=== PATIENT | male | born 1990 | race Hispanic/Latino ===

== ENCOUNTER 2025-02-06 05:46 | Emergency (ER) | payer SELFPAY ==
[2025-02-06 05:53] VITALS: BP 112/73; BMI 20.2
[2025-02-06 05:58] VITALS: BP 112/73
[2025-02-06 06:00] VITALS: BP 113/74
[2025-02-06 06:29] LABS: Hematocrit 34.9 % (39.0-52.0); Hemoglobin 11.9 g/dL (13.0-18.0); Mean Corp Hgb Conc. 34.1 g/dL (33.0-37.0); Mean Corpuscular Volume 86.0 fL (80.0-94.0); Nucleated Red Blood Cells % 0 % (-); Platelet Count 309 10^3/uL (130-400); Red Cell Dist. Width 12.9 % (11.5-14.5)
--- NOTE | 2025-02-06 06:40 | ED.GENMED ---
History of Present Illness
General
Chief Complaint: Fainting Sensation
Source: patient
Exam Limitations: none
Time Seen by Provider: 02/06/25 06:34
History of Present Illness
History of Present Illness:
See MDM
Past History
Past History
ED Past Medical History: None
ED Past Surgical History: None
Social History
Drug: Marijuana
Phy Exam
Physical Exam
Physical Exam:
See MDM
Course
Orders/Labs/Results
Orders:
Orders
02/06/25 05:53
EKG [Electrocardiogram (*1)] Urgent
Reason for Study: Syncope
EKG- Treatment ONCE
02/06/25 06:13
CMP [Comprehensive Metabolic Panel] Urgent
Complete Blood Count/With Diff Urgent
02/06/25 07:21
Fentanyl, Urine Urgent
Urine Drug Abuse Screen Urgent
Date Specimen was Collected: 02/06/25
Time Specimen was Collected: 07:18
Abnormal Lab Results
02/06/25 02/06/25
06:13 07:21
RBC 4.06 L 10^6/uL
(4.70-6.10)
Hgb 11.9 L g/dL
(13.0-18.0)
Hct 34.9 L %
(39.0-52.0)
MPV 10.9 H fL
(7.4-10.4)
Absolute Monos (auto) 0.9 H 10^3/uL
(0.1-0.6)
Lymphocytes % 20.3 L %
(20.5-51.1)
Monocytes % 10.3 H %
(1.7-9.3)
BUN 35 H mg/dl
(9-20)
Glucose 100 H mg/dl
(70-99)
Urine Cocaine Screen Positive H
(Negative)
U Marijuana (THC) Screen Positive H
(Negative)
02/06/25 06:13
02/06/25 06:13
Vital Signs
Initial and Last Documented VS:
Initial Vital Signs
Temp Pulse Resp BP Pulse Ox
98.4 F 66 14 112/73 98
02/06/25 05:53 02/06/25 05:53 02/06/25 05:53 02/06/25 05:53 02/06/25 05:53
Last Documented Vital Signs
Temp Pulse Resp BP Pulse Ox
98.4 F 66 14 112/73 98
02/06/25 05:53 02/06/25 05:53 02/06/25 05:53 02/06/25 05:53 02/06/25 06:44
MDM/Problems Addressed
Differential Diagnosis Includes:
Note:
CHIEF COMPLAINT(S)
Increased use of marijuana causing episodes of entering and exiting consciousness.
HISTORY OF PRESENT ILLNESS
The patient is a 34-year-old male who presented with episodes of losing and regaining consciousness. The patient stated, 'I just keep going in and out,' and expressed a need for evaluation due to these symptoms. He recently arrived at the hospital
via ambulance. The patient mentioned frequent use of marijuana, which he purchases off the street, indicating a concern for its effects. He was told at an outside hospital that he had fentanyl in his system but denies purposeful fentanyl use. He
denied any immediate chest pain or shortness of breath at presentation. The patient inquired about rehabilitation options, stating his desire to 'get myself together' and implying his willingness to seek help for substance use issues. During the
examination, he pointed out a lump in the neck region, which upon inspection, was deemed consistent with the hyoid bone without signs of acute abscess, mass, or lymphadenopathy.
SOCIAL DETERMINANTS AFFECTING HEALTH
The patient has expressed a reliance on marijuana, purchased from the street, which has led to health concerns, including episodes of altered consciousness. He has shown a willingness to consider rehabilitation as a measure to address his substance
use.
REVIEW OF SYSTEMS
- Neurological: Episodes of loss of consciousness.
- Oral scrutiny: Lump in the neck region consistent with the hyaloid bone, non-tender, not indicative of a mass or abscess.
PHYSICAL EXAM
General: Alert, no acute distress.. Lying in bed comfortably
Skin: Warm, dry.
Head: Normocephalic, atraumatic.
Neck: Supple, trachea midline, palpable area consistent with the hyoid bone.
Eyes, Ears, Nose, Mouth and Throat: Oral mucosa moist.
Cardiovascular: Normal peripheral perfusion, No edema. Regular rate and rhythm
Respiratory: Respirations are non-labored.
Gastrointestinal: Abdomen nondistended.
Musculoskeletal: Normal range of motion, normal strength.
Neurological: no focal neurological deficit observed.
Psychiatric: Cooperative, appropriate mood & affect.
PLAN
- Engage drug and alcohol counselors to discuss rehabilitation options for substance use.
- Conduct an Electrocardiogram (EKG) to evaluate cardiac function.
DIFFERENTIAL DIAGNOSIS
The Differential Diagnosis includes, in no particular order and is not limited to:
1. Substance-induced altered mental status
2. Syncope secondary to substance use
3. Cardiac arrhythmia
4. Anxiety-related depersonalization
5. Neurological disorder
6. Sleep disorder
7. Psychoactive substance withdrawal
8. Neuromuscular disorder
9. Transient ischemic attack
10. Organic brain syndrome due to drug use
EKG
My independent EKG interpretation is:
- Rhythm: Normal sinus rhythm
- Heart Rate: 87 beats per minute
- [place]: Normal
- ST Segment: No ST elevation (no STEMI)
CARE-UPDATE
02/06/25 - 06:45
Patient to be evaluated by drug and alcohol counselors for potential rehabilitation program.
CARE-UPDATE
02/06/25 - 08:24
The patient has been assessed by the drug and alcohol counselor and is deemed ready for discharge to a rehabilitation facility.
SUMMARY OF ENCOUNTER
The patient, a 34-year-old male, was seen in the emergency department due to episodes of losing and regaining consciousness, potentially related to frequent marijuana use. Upon evaluation, the patient appeared well and nontoxic and was able to
ambulate without difficulty. A urine drug screen (UDS) was conducted, showing positive results for cocaine and marijuana, with the fentanyl screen still pending. The patient expressed a desire for rehabilitation to address substance use concerns.
During the visit, he was evaluated by a drug and alcohol counselor and was deemed medically cleared for rehabilitation placement.
DISPOSITION
The patient is ready for discharge to a rehabilitation facility.
MANAGEMENT OF THE PATIENTS CARE WAS DISCUSSED WITH
The patients care was discussed with a drug and alcohol counselor who evaluated him for potential rehabilitation.
PLAN
Engage with drug and alcohol counselors to facilitate rehabilitation placement for substance use.
INDEPENDENT REVIEW OF LABS AND INTERPRETATION OF TESTS
My independent review of the urine drug screen indicates positivity for cocaine and marijuana; the fentanyl screen is still pending.
MEDICATION RECONCILIATION
No medications were administered in the emergency department, and no new prescriptions were provided upon discharge as the patient is being discharged for rehabilitation placement.
MEDICAL DECISION MAKING
- Number and Complexity of Problems Addressed: Chronic conditions affecting care include substance use potentially leading to altered mental status.
- Differential Diagnosis: Substance-induced altered mental status, syncope secondary to substance use, cardiac arrhythmia, anxiety-related depersonalization, neurological disorder, sleep disorder, psychoactive substance withdrawal, neuromuscular
disorder, transient ischemic attack, organic brain syndrome due to drug use.
- Data:
Category 1:
- My independent interpretation of the EKG indicates normal sinus rhythm with a heart rate of 87 beats per minute and no ST elevation.
Category 3:
- Management of the patient�s readiness for rehab was discussed with a drug and alcohol counselor.
- Risk: Consideration of Admission/Observation: Escalation of care including admission/observation was considered given the complexity and risk of the patients presenting complaint, exam findings, and their underlying substance use. However,
ultimately I feel the patient is safe for outpatient management with close follow-up. Reasoning: Work-up reassuring, does not reveal any acute life/organ threatening processes, patients symptoms well-controlled upon reevaluation, reexamination is
reassuring, vitals are stable, patient agreeable with discharge, reliable for follow-up.
DIAGNOSIS
F12.20 - Cannabis dependence, uncomplicated; F14.20 - Cocaine dependence, uncomplicated.
*Pulse Oximetry
SaO2: 98
Oxygen Mode of Delivery: Room air
Patient hypoxic: no
*Critical Care Note
Total Time (30-74mins, 75-104mins- exclusive of procedures): Not Applicable
ED Attending Note
-
Portions of this chart may have been created with voice recognition software.� Occasional wrong word or��sound alike� substitutions may have occurred due to the inherent limitations of voice recognition software.
Discharge Plan
Departure
Patient Disposition: Acute Rehab Facility
Date of Disposition: 02/06/25
Time of Disposition: 08:
Patient with high blood pressure during this ER visit?: No
Discharge Problem:
Drug use disorder
Referrals:
UNKNOWN - PT DOES,NOT KNOW [Family Provider]
Activity Restrictions/Additional Instructions:
Antoni Uriarte is medically cleared and stable for rehab.
Interventions
Interventions:
*Risk Screen - Suicide Last Done: 02/06/25 06:03
*General Assessment Last Done: 02/06/25 06:03
*Neglect/Abuse Screening Last Done: 02/06/25 06:03
*ED COVID-19 Vaccine History Last Done: 02/06/25 05:53
ED- Cardiac Assessment Last Done: 02/06/25 05:53
ED- Neurological Assessment Last Done: 02/06/25 05:53
Discharge Date and Time
Print Language: SPANISH
[2025-02-06 06:43] LABS: ALT (SGPT) 15 U/L (0-50); AST (SGOT) 24 U/L (17-59); Albumin 4.6 g/dl (3.5-5.0); Alkaline Phosphatase 56 U/L (38-126); Blood Urea Nitrogen 35 mg/dl (9-20); Calcium 9.7 mg/dl (8.4-10.2); Carbon Dioxide 26 mmol/L (22-30); Chloride 103 mmol/L (98-107); Estimated Creatinine Clearance 119 ml/min; Glucose 100 mg/dl (70-99); Potassium 3.8 mmol/L (3.5-5.1); Sodium 137 mmol/L (135-145); Total Protein 7.4 g/dl (6.3-8.2); eGFR > 60.00
[2025-02-06 07:46] VITALS: BP 98/61
[2025-02-06 08:00] VITALS: BP 98/61
--- NOTE | 2025-02-06 09:11 | EDRN ---
IV removed at this time. Bandage applied.
--- NOTE | 2025-02-06 09:30 | EDRN ---
Patient stopped in the hallway by ED Charge Nurse. Patient fully dressed. Patient told ED charge manager that he was going outside to smoke. Patient informed that he is not able to smoke on hospital property. Patient escorted back to his room. IV removed
by ED commercial attache. Patient found not to be in his room. Patient's belonging's taken to security. Received a call from security asking if patient was d/c'd. Security told no that the patient is waiting for [facility] placement. Patient escorted by
security back to room 9. Reinforced with patient that he's not allowed to leave to go outside to smoke. Nicotine patch/gum offered to patient. Patient refused.
--- NOTE | 2025-02-06 10:59 | EDRN ---
Patient escorted to the lobby. [facility]
== END 2025-02-06 10:50 ==
LOC: EMR 05:46
PROVIDERS: Emergency Medicine; EMERGENCY PHYSICIAN Student in an Organized Health Care Education/Training Program
DX: F12.20 Cannabis dependence, uncomplicated (principal); F14.20 Cocaine dependence, uncomplicated
CPT/HCPCS: 99283; 80053; 80306; 80307; 85025; 93005